=== PATIENT | female | born 1950 | race Caucasian/White ===

== ENCOUNTER 2017-04-03 09:51 | Day surgery (SDC) | payer MEDICARE ==
[2017-04-03] VITALS (9 sets, daily range): BP systolic 104–159; BP diastolic 59–86; PULSE 60–68; RESP 16–20; TEMP 97.6–97.7; O2SAT 95–99
[~2017-04-03] VITALS: Ht 160 cm; Wt 63.6 kg
[2017-04-03] MEDS ORDERED: SODIUM CHLOR 0.9% 1000 ML IV SCH (10:15)
[2017-04-03] MEDS ORDERED: FISHCAP4 PO (10:21)
[2017-04-03] MEDS ORDERED: CENTCHW4 CHEW (10:21)
[2017-04-03] MEDS ORDERED: VITA200C3 PO (10:21)
[2017-04-03] MEDS ORDERED: LISI10TA PO (10:21)
[2017-04-03] MEDS ORDERED: VITA1000 PO (10:21)
[2017-04-03 10:50] LABS: AUTOMATED NEUTROPHIL # 2.5 TH/MM3 (1.8-7.7); BASOPHIL # 0.1 TH/MM3 (0-0.2); BASOPHIL % 1.2 % (0.0-2.0); EOSINOPHIL # 0.2 TH/MM3 (0-0.4); EOSINOPHIL % 3.5 % (0.0-4.0); HEMATOCRIT 38.3 % (35.0-46.0); HEMO FLAGS DIFF FINAL; LYMPH % 44.1 % (9.0-44.0); LYMPHOCYTE # 2.7 TH/MM3 (1.0-4.8); MEAN CELL VOLUME 95.1 FL (80.0-100.0); MEAN CORPUSCULAR HEMOGLOBIN 31.8 PG (27.0-34.0); MEAN CORPUSCULAR HGB CONC 33.4 % (32.0-36.0); MONO % 10.5 % (0.0-8.0); NEUT % 40.7 % (16.0-70.0); PLATELET COUNT 181 TH/MM3 (150-450); RED BLOOD COUNT 4.03 MIL/MM3 (4.00-5.30); RED CELL DISTRIBUTION WIDTH 13.8 % (11.6-17.2); WHITE BLOOD COUNT 6.1 TH/MM3 (4.0-11.0)
[2017-04-03 11:09] LABS: PROTHROMBIN TIME - PATIENT 9.8 SEC (9.8-11.6)
[2017-04-03 11:12] LABS: APTT (PATIENT) 23.4 SEC (24.3-30.1)
[2017-04-03] MEDS ORDERED: LIDOCAINE 1%/EPINEPHrine 1:100,000 SOLN 20 ML VIAL ONE (12:05)
[2017-04-03] MEDS ORDERED: MIDAZOLAM HCL 2 MG/2 ML VIAL ONE (12:18)
--- NOTE | 2017-04-03 13:25 | RADRPT ---
EXAM DATE/TIME: 04/03/2017 12:24 [place] COMPARISON: No previous studies available for comparison. INDICATIONS : Alcohol cirrhosis SEDATION TIME: 5 minutes BIOPSY SITE: liver MEDICATION(S): 1.) 2 mg midazolam (Versed) IV 2.) 100 mcg fentanyl (Sublimaze) IV DEVICE(S): 1.) 18 gauge BioPince needle MEDICAL HISTORY : Diverticullitis. Renal failure, chronic. SURGICAL HISTORY : None. ENCOUNTER: Initial ACUITY: 1 day PAIN SCORE: 0/10 LOCATION: Right upper quadrant A total of one core specimen(s) were obtained and sent to the laboratory for pathologic evaluation. PROCEDURE: 1. CT guided liver biopsy. 2. Conscious sedation with continuous EKG and oximetry monitoring. 3. EKG and oximetry remained stable throughout the procedure. Prior to the procedure informed consent was obtained. Any appropriate prior imaging studies were rev iewed. Using automated exposure control and adjustment of the mA and/or kV according to patient size, radiat ion dose was kept as low as reasonably achievable to obtain optimal diagnostic quality images. DICOM format image data is available electronically for review and comparison. The site was prepped in a sterile fashion. Full sterile technique was used, including cap, mask, sal rile gloves and gown and a large sterile sheet. Hand hygiene and 2% chlorhexidine and/or betadine/al cohol prep was utilized per protocol for cutaneous antisepsis. The skin and subcutaneous tissues wer e infiltrated with local anesthetic solution. With CT guidance the previously identified target was localized. Biopsy was performed using the presc ribed needle as above. Adequate hemostasis was obtained with compression at the puncture site. Follow-up CT scan reveals no hemorrhage. The patient tolerated the procedure well and there were no complications. The patient was returned to the Radiology Outpatient Unit in stable condition. CONCLUSION: Uncomplicated CT guided liver biopsy. Zohaib Arias Jr., MD on April 03, 2017 at 13:22 Board Certified Radiologist. This report was verified electronically.
--- NOTE | 2017-04-04 10:57 | PD.RAD ---
Post CT Procedure Prog Note Pre Procedure Diagnosis: (1) Cirrhosis Post Procedure Diagnosis: (1) Cirrhosis Procedure Date: Apr 04, 2017 Supervising Radiologist: Zohaib Arias JR Anesthesia: Conscious Sedation Plan of Activity Patient to Unit: ROPU Patient Condition: Good See PACS Report for procedural detail/treatment Biopsy Imaging Guidance: CT Biopsy Procedure: Liver Specimen: Core Biopsy Findings: Core sample of right lobe of liver obtained. No bleeding on post CT Jr. Arias Thomas Justin MD Apr 04, 2017 10:57
== END 2017-04-03 16:15 | disposition home or self-care (01) ==
LOC: HRAD 09:51 → HRIP 09:54 → HRAD 16:15
PROVIDERS: ATTEND Internal Medicine Gastroenterology
DX: K75.9 Inflammatory liver disease, unspecified (principal); K57.92 Diverticulitis of intestine, part unspecified, without perforation or abscess without bleeding; N18.9 Chronic kidney disease, unspecified
CPT/HCPCS: 47000; 77012; 85025; 85610; 85730; 88307; 88313; J2250; J3010; J7030